=== PATIENT | female | born 2000 | race Caucasian/White ===

== ENCOUNTER 2022-07-09 17:22 | Emergency (ER) | payer BC, SELFPAY ==
[2022-07-09 17:29] VITALS: BP 123/74; PULSE 100; RESP 16; TEMP 36.6; O2SAT 96
--- NOTE | 2022-07-09 19:00 | ED.GENADULT ---
HPI - General Adult General Chief complaint: Skin/Abscess/Foreign Body Stated complaint: HS exacerbation Time Seen by Provider: 07/09/22 17:40 Source: patient Mode of arrival: ambulatory Limitations: no limitations History of Present Illness HPI narrative: This is a 21-year-old female with PMH of hidradenitis suppurativa who presents to the ED with chief complaint of bilateral axilla pain and drainage ongoing for the past year. Patient states it has been worsening the past 2 weeks. She was seen by her primary care doctor and given a prescription for doxycycline. She states she was given a prescription for 21 days and only took 14 of these days because it felt like things were still just getting worse. Denies any fevers, chills, nausea, vomiting. Related Data Allergies Allergy/AdvReac Type Severity Reaction Status Date / Time No Known Allergies Allergy Mild Verified 07/09/22 17:37 Review of Systems Review of Systems: CONSTITUTIONAL: Denies fever, chills, or sweats. EYES: Denies visual changes, redness, or discharge. ENT: Denies rhinorrhea, congestion, sore throat, or otalgia. CARDIOVASCULAR: Denies chest pain, palpitations, or edema. RESPIRATORY: Denies cough or dyspnea. GASTROINTESTINAL: Denies abdominal pain, nausea, vomiting, or diarrhea. GENITOURINARY: Denies dysuria or hematuria. SKIN: See HPI MUSCULOSKELETAL: Denies back pain, joint pain, or myalgia. NEUROLOGIC: Denies headache, numbness, dizziness, or weakness. PSYCHIATRIC: Denies anxiety or depression. Exam Narrative: GENERAL: Well-appearing, well-nourished, and in no acute distress. HEAD: Normocephalic, atraumatic. EYES: PERRLA and EOMI. ENT: Nares clear, no rhinorrhea or epistaxis. Mucous membranes moist. Oropharynx without tonsillar hypertrophy exudate or other lesions. NECK: Supple. No adenopathy or masses. CHEST: No respiratory distress. Clear to auscultation. No wheezes rales or rhonchi HEART: Regular rate and rhythm. No murmur heard. Normal peripheral pulses. ABDOMEN: Soft, nontender, nondistended, normal active bowel sounds. MSK: Normal range of motion. No edema. SKIN: Left axilla: Small area of erythema with 1 pocket of swelling noted. It is tender. There is some drainage from the lesion with serosanguineous fluid. Right axilla: 5 cm by is a 5 cm area of erythema with 2 pockets of swelling noted. One of them is draining currently. Seems to be serosanguineous fluid. Moderate tenderness present. NEURO: Alert and oriented x3. No focal deficits. PSYCH: Normal mood and affect. Course Vital Signs Vital signs: Vital Signs Temperature 97.9 F 07/09/22 17:29 Pulse Rate 100 07/09/22 17:29 Respiratory Rate 16 07/09/22 17:29 Blood Pressure 123/74 07/09/22 17:29 Pulse Oximetry 96 07/09/22 17:29 Oxygen Delivery Room Air 07/09/22 17:29 Temperature 97.9 F 07/09/22 17:29 Pulse Rate 100 07/09/22 17:29 Respiratory Rate 16 07/09/22 17:29 Blood Pressure 123/74 07/09/22 17:29 Pulse Oximetry 96 07/09/22 17:29 Oxygen Delivery Room Air 07/09/22 17:29 Procedures Abscess I/D upper extremity: Date of Incision: 07/09/22 Time of Incision: 20:16 Side (if applicable): left (axilla) Sedation/analgesia: none Local Anesthetic: lidocaine 1% and with epi Amount of anesthesia used (mL): 5 Technique: incised with #11 blade Amount of fluid expressed (mL): 5 Irrigation: Yes Packing used?: iodoform I&D Results: Pus and Blood Complications: pain and bleeding Abcess I&D Additional Comments: I was only able to drain a very slight amount of serosanguineous fluid. It is likely more cystic and less infectious abscess in nature. Nonadherent dressing was placed. Wound was packed with iodoform. lower extremity: Date of Incision: 07/09/22 Time of Incision: 20:17 Side (if applicable): right (axilla) Sedation/analgesia: none
[2022-07-09] MEDS: LIDO 1%/EPINEPHRINE 1:100,000 10 ML VIAL (19:54)
== END 2022-07-09 20:08 | disposition home or self-care (01) ==
PROVIDERS: Emergency Provider Physician Assistant; PCP Emergency Medicine
DX: L73.2 Hidradenitis suppurativa (principal)
CPT/HCPCS: 10061; 99283

== ENCOUNTER 2023-07-04 12:00 | Emergency (ER) | payer OTHER, SELFPAY ==
[2023-07-04 12:10] VITALS: BP 102/69; PULSE 88; RESP 20; TEMP 36.4; O2SAT 100
--- NOTE | 2023-07-04 12:27 | ED.WOUNDLAC ---
HPI - Wound/Laceration General Chief Complaint: Wound/Laceration Stated Complaint: dog bite/right butt cheek Time Seen by Provider: 07/04/23 12:25 Source: patient, RN notes reviewed and old records reviewed Mode of arrival: ambulatory Limitations: no limitations History of Present Illness HPI narrative: 22 year old female who present to express care with complaint of being bit by a stray bit bull dog this morning to her right buttock. Patient has 1cm puncture wound with area of teeth abrasions above puncture wound that are red ranging in size 2cm to 4cm. Patient reports that she has notified animal control and appropriate paperwork completed in clinic at registration. Patient reports pain and burning to site and states that her tetanus is up to date. Onset (ago): hour(s) (this morning around 1030) Location: other (right buttock) Place: outdoors Patient tetanus UTD: Yes Treatments prior to arrival: other (none) Related Data Allergies Allergy/AdvReac Type Severity Reaction Status Date / Time No Known Allergies Allergy Mild Verified 07/04/23 12:28 Review of Systems Review of Systems: CONSTITUTIONAL: Denies fever, chills, or sweats. CARDIOVASCULAR: Denies chest pain, palpitations, or edema. RESPIRATORY: Denies cough or dyspnea. GASTROINTESTINAL: Denies abdominal pain, nausea, vomiting SKIN: Reports redness with discomfort to right buttock after dog bite to right buttock this morning. with puncture wound and teeth scratches MUSCULOSKELETAL: Denies myalgia. NEUROLOGIC: Denies headache, numbness All systems reviewed & are unremarkable except as noted in HPI and below PMFSH Past Medical History Medical History (Updated 07/05/23 @ 10:40 by Victoria Green NP) Axillary hidradenitis suppurativa Surgical History Surgical History (Updated 07/04/23 @ 12:48 by Victoria Green NP) History of placement of ear tubes History of tonsillectomy Social History Social History (Updated 07/05/23 @ 10:34 by Victoria Green NP) Smoking packs per day: 0.5 Smoking cigarettes per day: 10.0 Years smoked: 1 Smoking pack-years: 0.50 Smoking status: Current every day smoker Tobacco type: cigarettes Alcohol intake: current Alcohol use details: very rare Substance use type: marijuana Gender identity (if verbalized by the patient): Female Comments At time of signature, agree with nursing past medical, surgical, social and family history. There is no relevant family history pertinent to the presenting complaint Exam Narrative: GENERAL: Well-appearing, well-nourished, and in no acute distress. HEAD: Normocephalic, atraumatic. EYES: PERRLA and EOMI. ENT: Nares clear, no rhinorrhea or epistaxis. Mucous membranes moist. NECK: Supple.no lymphadenopathy CHEST: Clear to auscultation. No respiratory distress.SAO2 100% on room air HEART: Regular rate and rhythm. No murmur heard. Normal peripheral pulses. ABDOMEN: Soft, nontender, nondistended, normal active bowel sounds. EXTREMITIES: Normal range of motion. No edema. SKIN: Warm, dry. Erythema, induration, tenderness, with 1cm puncture wound and 6 abrasion from teeth calle with no active bleeding, no warmth to area, is tender and painful to palpation. wound cleansing and large band-aide to site. Patient denies any tingling or numbness to site or radiation of pain. NEURO: No focal deficits. Alert and oriented x3. Course Course Emergency Course: Patient is aware of diagnosis, understands and agrees to treatment plan. Anticipatory guidance given. Patient agrees to follow-up as directed and is aware of reasons to seek care at the emergency department. Portions of this record may have been created with voice recognition software Level of Care: Express Care Visit Vital Signs Vital signs: Vital Signs Temperature 36.4 C L 07/04/23 12:10 Pulse Rate 88 07/04/23 12:10 Respiratory Rate 20 07/04/23 12:10 Blood Pressure 102/69 07/04/23 12:10 Pulse Oximet
== END 2023-07-04 13:00 | disposition home or self-care (01) ==
PROVIDERS: Emergency Provider Registered Nurse
DX: S31.813A Puncture wound without foreign body of right buttock, initial encounter (principal); W54.0XXA Bitten by dog, initial encounter; F17.210 Nicotine dependence, cigarettes, uncomplicated; F12.90 Cannabis use, unspecified, uncomplicated
CPT/HCPCS: 99213; G0463